=== PATIENT | male | born 2000 | race Caucasian/White ===

== ENCOUNTER 2021-10-16 10:54 | Emergency (ER) | payer OTHER | END 2021-10-16 13:00 | disposition home or self-care (01) | LOC: JP.ED 10:54 | DX: S40.021A Contusion of right upper arm, initial encounter (principal); W01.10XA Fall on same level from slipping, tripping and stumbling with subsequent striking against unspecified object, initial encounter | CPT/HCPCS: 73080-26-RT; 73080-RT; 99283 ==